=== PATIENT | female | born 1970 | race African-American/Black ===

== ENCOUNTER 2024-04-21 09:01 | Emergency (ER) | payer OTHER, SELFPAY ==
[2024-04-21 09:02] VITALS: BP 161/108; PULSE 91; TEMP 36.9; O2SAT 99; BMI 30.1
--- NOTE | 2024-04-21 09:08 | ED_ITS ---
HPI HPI - General Adult General Chief complaint: Fall Stated complaint: FALL Time Seen by Provider: 04/21/24 09:06 Source: patient Mode of arrival: ambulance Limitations: no limitations History of Present Illness HPI narrative: Patient is a 53-year-old female who is presenting to the ER with chief complaint of right-sided rib pain, breast pain after a fall on April 04. Patient came in from EMS. Patient was admitted to [facility] for 1 week to the psychiatric floor for anxiety and depression. Patient was just released from [facility] on Saturday. Patient is having right upper lateral chest wall/rib pain along with right upper anterior chest wall pain and to the right breast as well. Patient has no bruising or ecchymosis to the right breast. Patient has no headache, no neck pain. No heavy chest pressure, patient has sharp right-sided chest pain with deep inspiration, twisting, turning, bending over, appears musculoskeletal in reproducible pain. No abdominal pain nausea vomiting, no other acute complaints. Patient was seen and evaluated at [facility] 2 weeks ago, patient had x-rays at that time that showed no acute findings. Patient was released from psychiatric mental health facility on Saturday. All systems are negative except as noted/marked. All systems reviewed and otherwise negative. Nurses note and vital signs reviewed and patient is not hypoxic. General: The patient appears well and in no apparent distress. Patient is resting comfortably on cart. Patient is not toxic, lethargic, or listless Skin: Warm, dry, no pallor noted. There is no rash noted. No petechiae, purpura. Head: Normocephalic, atraumatic Eye: Normal conjunctiva, no drainage, EOMI. PERRL Ears, Nose, Mouth, and Throat: oral mucosa is moist. Nares patent. Mouth without vesicles. Cardiovascular: Regular Rate and Rhythm, no murmur, gallop, rub, patient has moderate to severe tenderness to palpation to the right upper lateral chest wall, right upper anterior chest wall and over the right breast as well. [place] CARIAS evaluated right breast, there is no bruising, ecchymosis, abscess, redness, no signs of acute trauma or signs of infection to the right breast. No nipple discharge. No crepitus to right lateral or right upper anterior chest wall. Respiratory: Patient is in no distress, no accessory muscle use, lungs are clear to auscultation, no wheezing, rales or rhonchi. Mild splinting, equal breath sounds bilateral. Back: non-tender, no CVA tenderness bilaterally to percussion. No CT LS midline pain GI: no tenderness to palpation, no masses appreciated. No rebound, guarding, or rigidity noted. No distention Musculoskeletal: Patient has full range of motion of all of the extremities, no motor, sensory, or focal neurological deficits Neurological: A&O x4, normal speech Psychiatric: Cooperative Related Data Allergies Allergy/AdvReac Type Severity Reaction Status Date / Time Unable to Assess Allergy Verified 04/21/24 09:07 Opioid HPI Opioid Management Most Recent Opioid Data: Last APR Pain Assessment 04/21/24 09:24 PFSH PFSH Social History Little interest or pleasure in doing things: not at all Feeling down, depressed, or hopeless: not at all Exam Constitutional Vital Signs, click to edit/add: Last Vital Signs Temp 98.5 F 04/21/24 09:02 Pulse 78 04/21/24 10:43 Resp 24 H 04/21/24 10:43 BP 148/90 H 04/21/24 10:43 Pulse Ox 98 04/21/24 10:43 O2 Del Method Room Air 04/21/24 09:02 Course Vital Signs Vital signs: Vital Signs Temperature 98.5 F 04/21/24 09:02 Pulse Rate 91 H 04/21/24 09:02 Respiratory Rate 28 H 04/21/24 09:02 Blood Pressure 161/108 H 04/21/24 09:02 Pulse Oximetry 99 04/21/24 09:02 Oxygen Delivery Method Room Air 04/21/24 09:02 Temperature 98.5 F 04/21/24 09:02 Pulse Rate 78 04/21/24 10:43 Respiratory Rate 24 H 04/21/24 10:43 Blood Pressure 148/90 H 04/21/24 10:43 Pulse Oximetry 98 04/21/24 10:43 Oxygen Delivery Method Room Air 04/21/24 09:02 Medical Decision Making MDM Narrative Medical decision making narrative: EKG shows no acute findings. Patient x-ray shows no rib fracture, ill-defined opacity of the right upper lobe, mass versus pneumonia versus contusion, consider CT for evaluation. Patient has no cough, congestion, fever, chills. Patient traumatic injury most likely shows this could be pulmonary contusion to the right upper lobe. Patient is not hypoxic, 98 to 99% on room air. Patient has no respiratory distress. She has no significant injury signs or symptoms to the right upper lateral or right upper anterior chest wall. Patient is aware of the questionable mass versus pneumonia versus contusion, patient's injury 2 weeks ago in April 04 close along with most likely pulmonary contusion. However patient understands to follow-up with her PCP for repeat testing as needed. Patient was given a copy of her x-ray report as well so she is aware of these findings. No question at discharge. Lab Data Labs: Lab Results 04/21/24 Range/Units 09:10 Troponin I High Sens 38.0 (4.0-51.3) pg/mL ECG Data Attestation: I personally reviewed and interpreted this ECG as follows: (KG interpretation. Normal sinus rhythm at 90 beats a minute. Normal axis deviation. No acute ST elevation, no acute ectopy. QTc of 435) Discharge Plan Discharge Chief Complaint: Fall Clinical Impression: Rib pain on right side, Chest wall pain Patient Disposition: Home, Self-Care Time of Disposition Decision: 10:34 Condition: Fair Print Language: Russian Instructions: Hypertension (ED), Chest Wall Pain (ED), Rib Contusion (ED) Additional Instructions: Continue ice 20 minutes on, 20 minutes off. Do not use heat. Alternate Tylenol and either Motrin, Advil, or ibuprofen every 4 hours to help with pain. Maximum dose of Tylenol is 3000 mg a day. Maximum dose of either Motrin, Advil, or ibuprofen is 2400 mg a day. Pain should improve in the next 1 to 2 weeks, if not follow-up with PCP You have asymptomatic hypertension in the emergency room today. Either go to a drugstore, pharmacy, or where she is to her or your doctors office to have your blood pressure checked intermittently. A better idea is to buy a blood pressure cuff at home that is appropriate size, the pharmacist can help make sure that you use size is appropriate. Take your blood pressure twice a day for the next 1 to 2 weeks. If your blood pressure is consistently elevated 140/90, follow-up with your PCP for medication changes or adjustment as indicated. If you are having any significant headache, severe chest pain or heaviness or tightness, shortness of breath, passing out, or any other acute symptoms, please return to the ER for further evaluation or if you have any other acute concerns. Referrals: Physician,Non-Staff, MD [Primary Care Provider] - 1 week
[2024-04-21 09:20] VITALS: BP 160/100
[2024-04-21] MEDS: ACETAMINOPHEN 500 MG TABLET PO (09:24)
--- NOTE | 2024-04-21 09:25 | PC.NURSE ---
pt medicated for pain, pt refused ice pack
--- NOTE | 2024-04-21 09:29 | ECG_ITS ---
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 Measurements Intervals Coy Rate: 90 P: 79 OH: 148 QRS: 47 QRSD: 80 T: 40 QT: 388 QTc: 435 Interpretive Statements 1100 Sinus rhythm 4068 Nonspecific Twave abnormality Poor QRS progression Abnormal ECG Electronically Signed On 04-21-2024 13:05:59 EST by GRANT OCHOA M.D.
[2024-04-21 10:43] VITALS: BP 148/90; PULSE 78; O2SAT 98
== END 2024-04-21 10:52 | disposition home or self-care (01) ==
PROVIDERS: Emergency Provider Emergency Medicine
DX: R07.81 Pleurodynia (principal); R07.89 Other chest pain; F41.9 Anxiety disorder, unspecified; F32.A Depression, unspecified
CPT/HCPCS: 36415; 71101; 84484; 93005; 99285